=== PATIENT | male | born 1950 | race Caucasian/White ===

== ENCOUNTER 2017-06-24 19:02 | Emergency (ER) | payer MEDICARE, OTHER ==
[2017-06-24] MEDS ORDERED: Aspirin 81 MG Tab.Chew PO ONE (19:17)
[2017-06-24] MEDS ORDERED: Morphine 2 MG/ML Syringe IVPUSH PRN (19:17)
[2017-06-24] MEDS ORDERED: Sodium Chloride 0.9% 10 ML Syringe FLUSH PRN (19:17)
[2017-06-24] MEDS ORDERED: Nitroglycerin 0.4 MG Tab.SL ONE (19:19)
[2017-06-24] MEDS ORDERED: Aspirin 81 MG Tab.Chew ONE (19:19)
[2017-06-24] MEDS: Nitroglycerin 0.4 MG Tab.SL SL PRN ×2 (19:31→19:49)
--- NOTE | 2017-06-24 19:31 | EDM.PDOC ---
ED HPI GENERAL MEDICAL PROBLEM - General Chief Complaint: Chest Pain Stated Complaint: CHEST PAIN Time Seen by Provider: 06/24/17 19:11 Source of Information: Reports: Patient, Family, RN Notes Reviewed History Limitations: Reports: No Limitations - History of Present Illness INITIAL COMMENTS - FREE TEXT/NARRATIVE: 67-year-old gentleman presents emergency department day complaint of chest pressure, he states the pressure started about 3 hours prior denies any nausea vomiting shortness of breath or diaphoresis the pain goes to his back and up into the right side of his neck, he has no cardiac history he states he has stress test about 5 years ago which was negative does have a family history with one brother and his father known coronary artery disease chest pressure Pain Score (Numeric/FACES): 6 - Related Data Allergies Allergy/AdvReac Type Severity Reaction Status Date / Time No Known Allergies Allergy Verified 11/17/13 16:27 Home Meds: Home Meds Aspirin [Ecotrin] 81 mg PO BEDTIME 06/24/17 [History] Levothyroxine 150 mcg PO ACBREAKFAST 06/24/17 [History] Multivitamin [Multivitamins] 1 tab PO DAILY 06/24/17 [History] Past Medical History Genitourinary History: Reports: Prostate Disorder Oncologic (Cancer) History: Reports: Prostate, Thyroid - Past Surgical History Cardiovascular Surgical History: Reports: Other (See Below) Other Cardiovascular Surgeries/Procedures: stress test in 2011 GI Surgical History: Reports: Appendectomy Male Surgical History: Reports: Prostatectomy Social & Family History - Tobacco Use Smoking Status *Q: Never Smoker - Caffeine Use Caffeine Use: Reports: Coffee - Recreational Drug Use Recreational Drug Use: No ED ROS GENERAL - Review of Systems Review Of Systems: See Below Constitutional: Reports: No Symptoms HEENT: Reports: No Symptoms Respiratory: Reports: No Symptoms Cardiovascular: Reports: Chest Pain GI/Abdominal: Reports: No Symptoms : Reports: No Symptoms Musculoskeletal: Reports: No Symptoms Skin: Reports: No Symptoms Neurological: Reports: No Symptoms ED EXAM, GENERAL - Physical Exam Exam: See Below Free Text/Narrative:: General: Male, not in any distress, alert and oriented x3 HEENT: head is atraumatic normocephalic, eyes pupils equal round reactive to light, sclera clear no conjunctivitis appreciated. Ears tympanic membranes clear and bernal landmarks and light reflex are present bilaterally canals are clear. Nose no septal deviation, nares are clear, no blood present. Mouth mucosa is moist and pink no erythema or exudate noted in soft palate, tongue is midline uvula is midline, dentition is intact. Neck: Supple no thyromegaly no tracheal deviation. Nodes: Cervical nodes subclavicular nodes nontender no palpable lymphadenopathy noted. Lungs: clear to auscultation bilaterally with symmetrical respirations, no adventitious noise appreciated. CV: Regular rate and rhythm S1 and S2 appreciated no murmurs rubs or gallops noted. Abdomen: Soft, nontender, no palpable masses or organomegaly appreciated, no distention no guarding bowel sounds are present, . Neuro: Cranial nerves II through XII grossly intact Skin: Warm and dry, intact Extremities: No lower extremity edema appreciated, pedal pulse is +2. Course - Vital Signs Last Recorded V/S: Last Vital Signs Temp 99.4 F 06/24/17 20:47 Pulse 66 06/24/17 20:47 Resp 18 06/24/17 20:47 BP 113/60 06/24/17 20:47 Pulse Ox 93 L 06/24/17 20:47 - Orders/Labs/Meds Orders: Active Orders 24 hr Category Date Time Status Cardiac Monitoring [RC] .As Directed Care 06/24/17 19:17 Active EKG Documentation Completion [RC] ASDIRECTED Care 06/24/17 19:18 Active Peripheral IV Care [RC] . DIRECTED Care 06/24/17 19:18 Active Chest 1V Frontal [CR] Stat Exams 06/24/17 19:18 Taken Heparin Sodium/D5W [Heparin 25,000 Units in D5W 500 ML] Med 06/24/17 20:45 Ordered 25,000 units in 500 ml IV TITRATE Morphine Med 06/24/17 19:17 Active 2 mg IVPUSH Q10M PRN Nitroglycerin [Nitrostat] Med 06/24/17 19:17 Active 0.4 mg SL Q5M PRN Sodium Chloride 0.9% [Normal Saline] 1,000 ml Med 06/24/17 20:00 Active IV ASDIRECTED Sodium Chloride 0.9% [Saline Flush] Med 06/24/17 19:17 Active 10 ml FLUSH ASDIRECTED PRN Peripheral IV Insertion Adult [OM.PC] Stat Oth 06/24/17 19:17 Ordered Saline Lock Insert [OM.PC] Stat Oth 06/24/17 19:17 Ordered EKG 12 Lead [EK] Stat Ther 06/24/17 19:18 Ordered Medication Orders Sodium Chloride (Normal Saline) 1,000 mls @ 125 mls/hr IV ASDIRECTED AMAURY Last Infusion: 06/24/17 20:16 Dose: 125 mls/hr Admin: 06/24/17 19:58 Dose: 999 mls/hr Heparin Sodium/Dextrose (Heparin 25,000 Units In D5w 500 Ml) 25,000 units in 500 mls @ 23.232 mls/hr IV TITRATE AMAURY; 12 UNITS/KG/HR PRN Reason: Protocol Morphine Sulfate (Morphine) 2 mg IVPUSH Q10M PRN PRN Reason: Chest Pain Stop: 06/25/17 19:17 Nitroglycerin (Nitrostat) 0.4 mg SL Q5M PRN PRN Reason: Chest Pain Stop: 06/25/17 19:17 Last Admin: 06/24/17 19:49 Dose: 0.4 mg Admin: 06/24/17 19:31 Dose: 0.4 mg Sodium Chloride (Saline Flush) 10 ml FLUSH ASDIRECTED PRN PRN Reason: Keep Vein Open Last Admin: 06/24/17 19:32 Dose: 10 ml Labs: Laboratory Tests 06/24/17 06/24/17 06/24/17 Range/Units 19:25 19:25 19:25 WBC 12.6 H (4.5-11.0) K/uL RBC 4.86 (4.30-5.90) M/uL Hgb 14.3 (12.0-15.0) g/dL Hct 41.7 (40.0-54.0) % MCV 86 (80-98) fL MCH 29 (27-31) pg MCHC 34 (32-36) % Plt Count 318 (150-400) K/uL Neut % (Auto) 63 (36-66) % Lymph % (Auto) 25 (24-44) % [place] % (Auto) 9 H (2-6) % Eos % (Auto) 2 (2-4) % Baso % (Auto) 1 (0-1) % Sodium 140 (140-148) mmol/L Potassium 3.9 (3.6-5.2) mmol/L Chloride 105 (100-108) mmol/L Carbon Dioxide 27 (21-32) mmol/L Anion Gap 7.7 (5.0-14.0) mmol/L BUN 18 (7-18) mg/dL Creatinine 1.1 (0.8-1.3) mg/dL Est Cr Clr Drug Dosing 65.44 mL/min Estimated GFR (MDRD) > 60 (>60) Glucose 116 H (74-106) mg/dL Lactic Acid 1.5 (0.4-2.0) mmol/L Calcium 8.2 L (8.5-10.1) mg/dL Total Bilirubin 0.8 (0.2-1.0) mg/dL AST 16 (15-37) U/L ALT 16 (12-78) U/L Alkaline Phosphatase 60 (46-116) U/L CK-MB (CK-2) 1.2 (0-3.6) mg/mL Troponin I 0.114 H* (0.000-0.056) ng/mL Total Protein 6.9 (6.4-8.2) g/dL Albumin 3.4 (3.4-5.0) g/dL Globulin 3.5 (2.3-3.5) g/dL Albumin/Globulin Ratio 1.0 L (1.2-2.2) Lipase 147 (73-393) U/L Meds: Medications Generic Name Dose Route Start Last Admin Trade Name Freq PRN Reason Stop Dose Admin Sodium Chloride 1,000 mls @ 125 mls/hr 06/24/17 20:00 06/24/17 20:16 Normal Saline IV 125 mls/hr ASDIRECTED [facility] Infusion Heparin Sodium/Dextrose 25,000 units in 500 mls @ 23.232 mls/hr 06/24/17 20: 45 Heparin 25,000 Units In D5w 500 Ml IV TITRATE [facility] Protocol 12 UNITS/KG/HR Morphine Sulfate 2 mg 06/24/17 19:17 Morphine IVPUSH 06/25/17 19:17 Q10M PRN Chest Pain Nitroglycerin 0.4 mg 06/24/17 19:17 06/24/17 19:49 Nitrostat SL 06/25/17 19:17 0.4 mg Q5M PRN Administration Chest Pain Sodium Chloride 10 ml 06/24/17 19:17 06/24/17 19:32 Saline Flush FLUSH 10 ml ASDIRECTED PRN Administration Keep Vein Open Discontinued Medications Generic Name Dose Route Start Last Admin Trade Name Camilo PRN Reason Stop Dose Admin Aspirin 324 mg 06/24/17 19:17 06/24/17 19:24 Aspirin PO 06/24/17 19:18 324 mg ONETIME ONE Administration Aspirin Confirm 06/24/17 19:19 06/24/17 19:25 Aspirin Administered 06/24/17 19:20 Not Given Dose 324 mg .ROUTE .STK-MED ONE Clopidogrel Bisulfate 300 mg 06/24/17 20:37 06/24/17 20:45 Plavix PO 06/24/17 20:38 300 mg ONETIME ONE Administration Heparin Sodium (Porcine) 4,000 units 06/24/17 20:29 06/24/17 20:34 Heparin Sodium IVPUSH 06/24/17 20:30 4,000 units ONETIME ONE Administration Nitroglycerin Confirm 06/24/17 19:19 06/24/17 19:28 Nitrostat Administered 06/24/17 19:20 Not Given Dose 0.4 mg .ROUTE .STK-MED ONE Departure - Departure Time of Disposition: 20:50 Disposition: DC/Tfer to Acute Hospital 02 Reason for Transfer *Q: Primary PCI Indicated Condition: Fair Clinical Impression: Non-ST elevation [place] (NSTEMI) Forms: ED Department Discharge - My Orders Last 24 Hours: My Active Orders 06/24/17 19:17 Cardiac Monitoring [RC] .As Directed Morphine 2 mg IVPUSH Q10M PRN Nitroglycerin [Nitrostat] 0.4 mg SL Q5M PRN Sodium Chloride 0.9% [Saline Flush] 10 ml FLUSH ASDIRECTED PRN Peripheral IV Insertion Adult [OM.PC] Stat Saline Lock Insert [OM.PC] Stat 06/24/17 19:18 EKG Documentation Completion [RC] ASDIRECTED Peripheral IV Care [RC] . DIRECTED Chest 1V Frontal [CR] Stat EKG 12 Lead [EK] Stat 06/24/17 20:00 Sodium Chloride 0.9% [Normal Saline] 1,000 ml IV ASDIRECTED 06/24/17 20:45 Heparin Sodium/D5W [Heparin 25,000 Units in D5W 500 ML] 25,000 units in 500 ml IV TITRATE - Assessment/Plan Last 24 Hours: My Active Orders 06/24/17 19:17 Cardiac Monitoring [RC] .As Directed Morphine 2 mg IVPUSH Q10M PRN Nitroglycerin [Nitrostat] 0.4 mg SL Q5M PRN Sodium Chloride 0.9% [Saline Flush] 10 ml FLUSH ASDIRECTED PRN Peripheral IV Insertion Adult [OM.PC] Stat Saline Lock Insert [OM.PC] Stat 06/24/17 19:18 EKG Documentation Completion [RC] ASDIRECTED Peripheral IV Care [RC] . DIRECTED Chest 1V Frontal [CR] Stat EKG 12 Lead [EK] Stat 06/24/17 20:00 Sodium Chloride 0.9% [Normal Saline] 1,000 ml IV ASDIRECTED 06/24/17 20:45 Heparin Sodium/D5W [Heparin 25,000 Units in D5W 500 ML] 25,000 units in 500 ml IV TITRATE Plan: Assessment Acuity = acute Site and laterality = non-ST elevation myocardial infarction complicated patient with history of hypothyroidism Etiology = probable coronary artery disease Manifestations = angina Location of injury = Home Lab values = EKG shows nonspecific T wave inversions with poor R-wave progression no old EKGs available, WBC elevated at 12.6 consistent leukocytosis troponin is elevated 0.114 consistent with myocardial injury, chest x-ray shows no acute process I did review films myself I cannot appreciate any acute process , the official read from radiology is pending Plan Called and discussed case with Dr. Sullivan hospitalist rehabilitation coordinator [facility] kindly accepted the patient in transfer he will be transferred via EMS ground he has received 4000 heparin bolus and 300 mg of Plavix heparin drip will be initiated in route Patient was in agreement with the plan all questions were answered, This note was dictated using [employer] voice recognition software please call with any questions.
[2017-06-24] MEDS ORDERED: Sodium Chloride 0.9% 1,000 ML IV SCH (20:00)
[2017-06-24] MEDS ORDERED: Heparin Sodium 5,000 Units/ML Vial IVPUSH ONE (20:29)
[2017-06-24] MEDS ORDERED: Clopidogrel 75 MG Tab PO ONE (20:37)
[2017-06-24] MEDS ORDERED: Heparin Sodium/D5W 25,000 UNITS/500 ML BAG IV SCH (20:45)
[2017-06-24 21:18] VITALS: BP 112/69
--- NOTE | 2017-06-27 09:08 | CR ---
Chest 1V Frontal HISTORY: Chest Pain COMPARISON: Portable chest, 1953 hours FINDINGS: Lungs appear clear and normally aerated. Cardiomediastinal silhouette is within normal limits. Ather osclerotic calcification is noted in the aortic arch. No vascular redistribution or pleural fluid ca n be seen. Mild degenerative changes can be seen along the thoracic spine. IMPRESSION: No acute chest abnormality is identified.
== END 2017-06-24 21:31 ==
LOC: JP.ED 19:02
DX: I21.4 Non-ST elevation (NSTEMI) myocardial infarction (principal); Z79.82 Long term (current) use of aspirin; Z98.890 Other specified postprocedural states
CPT/HCPCS: 36415; 71010; 80053; 82553; 83605; 83690; 84484; 85025; 93005; 96374; 99285; A9270; J1644; J7040; J7050; 93010

== ENCOUNTER 2017-07-03 15:12 | Emergency (ER) | payer MEDICARE, OTHER ==
[2017-07-03] MEDS ORDERED: Nitroglycerin 0.4 MG Tab.SL SL PRN (15:23)
[2017-07-03] MEDS ORDERED: Morphine 2 MG/ML Syringe IVPUSH PRN (15:23)
--- NOTE | 2017-07-03 15:27 | EDM.PDOC ---
ED HPI GENERAL MEDICAL PROBLEM - General Chief Complaint: Chest Pain Stated Complaint: CHEST PAIN Time Seen by Provider: 07/03/17 15:25 Source of Information: Reports: Patient, Family, Old Records, RN Notes Reviewed History Limitations: Reports: No Limitations - History of Present Illness INITIAL COMMENTS - FREE TEXT/NARRATIVE: 67-year-old gentleman presents emergency department day complaint of chest pain and pressure he has a known history of diffuse coronary artery disease recently had a non-ST elevation myocardial infarction approximately 10 days ago was transferred to [facility] for further evaluation underwent cardiac catheterization which showed diffuse disease also discovered to have an aortic aneurysm records are pending. At this time he has no nausea vomiting no shortness of breath the pressure persists and does have radiation down into the left arm no diaphoresis Chest Pain Score (Numeric/FACES): 2 - Related Data Allergies Allergy/AdvReac Type Severity Reaction Status Date / Time No Known Allergies Allergy Verified 07/03/17 15:24 Home Meds: Home Meds Aspirin [Ecotrin] 81 mg PO BEDTIME 06/24/17 [History] Levothyroxine 150 mcg PO ACBREAKFAST 06/24/17 [History] Multivitamin [Multivitamins] 1 tab PO DAILY 06/24/17 [History] Carvedilol 1 tab PO BID 07/03/17 [History] Losartan [Cozaar] 12.5 mg PO DAILY 07/03/17 [History] atorvaSTATin Calcium [Atorvastatin Calcium] 1 tab PO BEDTIME 07/03/17 [History] Past Medical History Cardiovascular History: Reports: CAD, High Cholesterol, Hypertension, [place] Genitourinary History: Reports: Prostate Disorder Psychiatric History: Reports: None Oncologic (Cancer) History: Reports: Prostate, Thyroid - Past Surgical History Cardiovascular Surgical History: Reports: Other (See Below) Other Cardiovascular Surgeries/Procedures: stress test in 2011 GI Surgical History: Reports: Appendectomy Male Surgical History: Reports: Prostatectomy Social & Family History - Tobacco Use Smoking Status *Q: Never Smoker - Caffeine Use Caffeine Use: Reports: Coffee - Recreational Drug Use Recreational Drug Use: No ED ROS GENERAL - Review of Systems Review Of Systems: See Below Constitutional: Reports: No Symptoms HEENT: Reports: No Symptoms Respiratory: Reports: No Symptoms Cardiovascular: Reports: Chest Pain GI/Abdominal: Reports: No Symptoms : Reports: No Symptoms Musculoskeletal: Reports: Arm Pain ED EXAM, GENERAL - Physical Exam Exam: See Below Exam Limited By: No Limitations General Appearance: Alert, Mild Distress Head: Atraumatic, Normocephalic Neck: Normal Inspection, Supple, Non-Tender, Full Range of Motion Respiratory/Chest: No Respiratory Distress, Lungs Clear, Normal Breath Sounds, No Accessory Muscle Use, Chest Non-Tender Cardiovascular: Regular Rate, Rhythm, No Murmur GI/Abdominal: Soft, Non-Tender Course - Vital Signs Last Recorded V/S: Last Vital Signs Temp 98.4 F 07/03/17 15:21 Pulse 50 L 07/03/17 18:47 Resp 16 07/03/17 18:47 BP 141/90 H 07/03/17 18:47 Pulse Ox 98 07/03/17 18:47 - Orders/Labs/Meds Orders: Active Orders 24 hr Category Date Time Status Cardiac Monitoring [RC] .As Directed Care 07/03/17 15:24 Active EKG Documentation Completion [RC] ASDIRECTED Care 07/03/17 15:24 Active Peripheral IV Care [RC] . DIRECTED Care 07/03/17 15:24 Active Ang Abdomen Aorta w Bi Runoff [CT] Stat Exams 07/03/17 16:41 Taken Chest 1V Frontal [CR] Stat Exams 07/03/17 15:24 Taken Heparin Sodium/D5W [Heparin 25,000 Units in D5W 500 ML] Med 07/03/17 19:15 Ordered 25,000 units in 500 ml IV TITRATE Iopamidol [Isovue-370 (76%)] Med 07/03/17 17:15 Active 100 ml IV . DIRECTED Morphine Med 07/03/17 15:23 Active 2 mg IVPUSH Q10M PRN Nitroglycerin [Nitrostat] Med 07/03/17 15:23 Active 0.4 mg SL Q5M PRN Sodium Chloride 0.9% [Saline Flush] Med 07/03/17 15:23 Active 10 ml FLUSH ASDIRECTED PRN Sodium Chloride 0.9% [Saline Flush] Med 07/03/17 17:05 Active 10 ml FLUSH ONETIME PRN Peripheral IV Insertion Adult [OM.PC] Stat Oth 07/03/17 15:23 Ordered Saline Lock Insert [OM.PC] Stat Oth 07/03/17 15:23 Ordered EKG 12 Lead [EK] Stat Ther 07/03/17 15:24 Ordered Medication Orders Heparin Sodium/Dextrose (Heparin 25,000 Units In D5w 500 Ml) 25,000 units in 500 mls @ 22.861 mls/hr IV TITRATE AMAURY; 12 UNITS/KG/HR PRN Reason: Protocol Iopamidol (Isovue-370 (76%)) 100 ml IV . DIRECTED AMAURY Morphine Sulfate (Morphine) 2 mg IVPUSH Q10M PRN PRN Reason: Chest Pain Stop: 07/04/17 15:24 Nitroglycerin (Nitrostat) 0.4 mg SL Q5M PRN PRN Reason: Chest Pain Stop: 07/04/17 15:24 Last Admin: 07/03/17 15:38 Dose: 0.4 mg Sodium Chloride (Saline Flush) 10 ml FLUSH ASDIRECTED PRN PRN Reason: Keep Vein Open Last Admin: 07/03/17 15:29 Dose: 10 ml Sodium Chloride (Saline Flush) 10 ml FLUSH ONETIME PRN PRN Reason: PER RADIOLOGY PROTOCOL Last Admin: 07/03/17 17:20 Dose: 10 ml Labs: Laboratory Tests 07/03/17 07/03/17 07/03/17 Range/Units 15:35 15:35 15:35 WBC 6.9 (4.5-11.0) K/uL RBC 4.54 (4.30-5.90) M/uL Hgb 13.1 (12.0-15.0) g/dL Hct 39.5 L (40.0-54.0) % MCV 87 (80-98) fL MCH 29 (27-31) pg MCHC 33 (32-36) % Plt Count 328 (150-400) K/uL Neut % (Auto) 43 (36-66) % Lymph % (Auto) 42 (24-44) % [place] % (Auto) 11 H (2-6) % Eos % (Auto) 3 (2-4) % Baso % (Auto) 0 (0-1) % PT 10.3 (9.5-12.0) sec INR 0.96 (0.80-1.20) APTT 29.4 (27.0-36.0) sec Sodium 143 (140-148) mmol/L Potassium 4.0 (3.6-5.2) mmol/L Chloride 107 (100-108) mmol/L Carbon Dioxide 31 (21-32) mmol/L Anion Gap 5.4 (5.0-14.0) mmol/L BUN 16 (7-18) mg/dL Creatinine 1.0 (0.8-1.3) mg/dL Est Cr Clr Drug Dosing 71.99 mL/min Estimated GFR (MDRD) > 60 (>60) Glucose 121 H (74-106) mg/dL Calcium 8.3 L (8.5-10.1) mg/dL Total Bilirubin 0.5 (0.2-1.0) mg/dL AST 11 L (15-37) U/L ALT 19 (12-78) U/L Alkaline Phosphatase 68 (46-116) U/L CK-MB (CK-2) 0.8 (0-3.6) mg/mL Troponin I 0.074 H* (0.000-0.056) ng/mL Total Protein 7.0 (6.4-8.2) g/dL Albumin 3.4 (3.4-5.0) g/dL Globulin 3.6 H (2.3-3.5) g/dL Albumin/Globulin Ratio 0.9 L (1.2-2.2) 07/03/17 Range/Units 18:33 WBC (4.5-11.0) K/uL RBC (4.30-5.90) M/uL Hgb (12.0-15.0) g/dL Hct (40.0-54.0) % MCV (80-98) fL MCH (27-31) pg MCHC (32-36) % Plt Count (150-400) K/uL Neut % (Auto) (36-66) % Lymph % (Auto) (24-44) % [place] % (Auto) (2-6) % Eos % (Auto) (2-4) % Baso % (Auto) (0-1) % PT (9.5-12.0) sec INR (0.80-1.20) APTT (27.0-36.0) sec Sodium (140-148) mmol/L Potassium (3.6-5.2) mmol/L Chloride (100-108) mmol/L Carbon Dioxide (21-32) mmol/L Anion Gap (5.0-14.0) mmol/L BUN (7-18) mg/dL Creatinine (0.8-1.3) mg/dL Est Cr Clr Drug Dosing mL/min Estimated GFR (MDRD) (>60) Glucose (74-106) mg/dL Calcium (8.5-10.1) mg/dL Total Bilirubin (0.2-1.0) mg/dL AST (15-37) U/L ALT (12-78) U/L Alkaline Phosphatase (46-116) U/L CK-MB (CK-2) (0-3.6) mg/mL Troponin I 0.083 H* (0.000-0.056) ng/mL Total Protein (6.4-8.2) g/dL Albumin (3.4-5.0) g/dL Globulin (2.3-3.5) g/dL Albumin/Globulin Ratio (1.2-2.2) Meds: Medications Generic Name Dose Route Start Last Admin Trade Name Freq PRN Reason Stop Dose Admin Heparin Sodium/Dextrose 25,000 units in 500 mls @ 22.861 mls/hr 07/03/17 19: 15 Heparin 25,000 Units In D5w 500 Ml IV TITRATE COUNTS INCLUDE 234 BEDS AT THE [facility] Protocol 12 UNITS/KG/HR Iopamidol 100 ml 07/03/17 17:15 Isovue-370 (76%) IV . DIRECTED COUNTS INCLUDE 234 BEDS AT THE [facility] Morphine Sulfate 2 mg 07/03/17 15:23 Morphine IVPUSH 07/04/17 15:24 Q10M PRN Chest Pain Nitroglycerin 0.4 mg 07/03/17 15:23 07/03/17 15:38 Nitrostat SL 07/04/17 15:24 0.4 mg Q5M PRN Administration Chest Pain Sodium Chloride 10 ml 07/03/17 15:23 07/03/17 15:29 Saline Flush FLUSH 10 ml ASDIRECTED PRN Administration Keep Vein Open Sodium Chloride 10 ml 07/03/17 17:05 07/03/17 17:20 Saline Flush FLUSH 10 ml ONETIME PRN Administration PER RADIOLOGY PROTOCOL Discontinued Medications Generic Name Dose Route Start Last Admin Trade Name Freq PRN Reason Stop Dose Admin Heparin Sodium (Porcine) 4,000 units 07/03/17 19:05 Heparin Sodium IVPUSH 07/03/17 19:06 ONETIME ONE Sodium Chloride 100 mls @ 3 mls/sec 07/03/17 17:05 Normal Saline IV 07/03/17 17:06 ONETIME ONE - Re-Assessments/Exams Free Text/Narrative Re-Assessment/Exam: 07/03/17 16:42 Called and discussed case with Dr. Spencer cobol engineer on-call [facility] because he had recent cardiac catheterization 4 days ago he has a known aortic aneurysm recommendation to proceed with CTA of the aorta chest and abdomen looking for subtle dissection, patient was in agreement with the plan CT is ordered Departure - Departure Time of Disposition: 19:13 Disposition: DC/Tfer to Acute Hospital 02 Reason for Transfer *Q: Other Condition: Fair Clinical Impression: Non-ST elevation [place] (NSTEMI), Ascending aortic aneurysm Forms: ED Department Discharge - My Orders Last 24 Hours: My Active Orders 07/03/17 15:23 Morphine 2 mg IVPUSH Q10M PRN Nitroglycerin [Nitrostat] 0.4 mg SL Q5M PRN Sodium Chloride 0.9% [Saline Flush] 10 ml FLUSH ASDIRECTED PRN Peripheral IV Insertion Adult [OM.PC] Stat Saline Lock Insert [OM.PC] Stat 07/03/17 15:24 Cardiac Monitoring [RC] .As Directed EKG Documentation Completion [RC] ASDIRECTED Peripheral IV Care [RC] . DIRECTED Chest 1V Frontal [CR] Stat EKG 12 Lead [EK] Stat 07/03/17 16:41 Ang Abdomen Aorta w Bi Runoff [CT] Stat 07/03/17 17:05 Sodium Chloride 0.9% [Saline Flush] 10 ml FLUSH ONETIME PRN 07/03/17 17:15 Iopamidol [Isovue-370 (76%)] 100 ml IV . DIRECTED 07/03/17 19:15 Heparin Sodium/D5W [Heparin 25,000 Units in D5W 500 ML] 25,000 units in 500 ml IV TITRATE - Assessment/Plan Last 24 Hours: My Active Orders 07/03/17 15:23 Morphine 2 mg IVPUSH Q10M PRN Nitroglycerin [Nitrostat] 0.4 mg SL Q5M PRN Sodium Chloride 0.9% [Saline Flush] 10 ml FLUSH ASDIRECTED PRN Peripheral IV Insertion Adult [OM.PC] Stat Saline Lock Insert [OM.PC] Stat 07/03/17 15:24 Cardiac Monitoring [RC] .As Directed EKG Documentation Completion [RC] ASDIRECTED Peripheral IV Care [RC] . DIRECTED Chest 1V Frontal [CR] Stat EKG 12 Lead [EK] Stat 07/03/17 16:41 Ang Abdomen Aorta w Bi Runoff [CT] Stat 07/03/17 17:05 Sodium Chloride 0.9% [Saline Flush] 10 ml FLUSH ONETIME PRN 07/03/17 17:15 Iopamidol [Isovue-370 (76%)] 100 ml IV . DIRECTED 07/03/17 19:15 Heparin Sodium/D5W [Heparin 25,000 Units in D5W 500 ML] 25,000 units in 500 ml IV TITRATE Plan: Assessment Acuity = acute Site and laterality = non-ST elevation myocardial infarction complicated in a patient with known history of diffuse coronary artery disease and an ascending aortic aneurysm at 5.6 cm Etiology = unclear etiology Manifestations = chest pain Location of injury = Home Lab values = CBC CMP unremarkable troponin initially elevated 0.074 normal is 0.05 6 repeat troponin 3 hours later is 0.083, CT a of the aneurysm reveals a 5.6 dilated ascending aortic aneurysm with no evidence of dissection or rupture small amount of pericardial fluid Plan Called and discussed case with Dr. Dorantes cardiology [facility] recommended consultation with [facility] cardiothoracic surgery I spoke with Dr. Rodriguez who kindly accepted the patient in transport because of the continued elevation of the troponin this is treated as a non-STEMI heparin bolus was provided 4000 units heparin drip was initiated in route no Plavix was started for the potential of surgery to repair the aneurysm. He did receive aspirin prior to arrival at home he was given 1 nitroglycerin which resulted in pain-free he has been pain free during his whole duration at the ED 5 signs have been stable elected to transport via EMS ground. Patient was in agreement with the plan all questions were answered, This note was dictated using [employer] voice recognition software please call with any questions.
[2017-07-03] MEDS: Sodium Chloride 0.9% 10 ML Syringe FLUSH PRN ×2 (15:29→19:15)
[2017-07-03] MEDS ORDERED: Sodium Chloride 0.9% 10 ML Syringe FLUSH PRN (17:05)
[2017-07-03] MEDS ORDERED: Sodium Chloride 0.9% 100 ML IV ONE (17:05)
[2017-07-03] MEDS ORDERED: Iopamidol 755 Mg/ML 100 ML Bottle IV SCH (17:15)
[2017-07-03] MEDS ORDERED: Heparin Sodium 5,000 Units/ML Vial IVPUSH ONE (19:05)
[2017-07-03] MEDS ORDERED: Heparin Sodium/D5W 25,000 UNITS/500 ML BAG IV SCH (19:15)
[2017-07-03 19:25] VITALS: BP 146/88
--- NOTE | 2017-07-04 08:44 | CR ---
Chest 1V Frontal INDICATION: Chest Pain COMPARISON: 06/24/2017 FINDINGS: Single AP portable chest. Heart size remains normal. No acute infiltrates. Surgical clip s at the base of the neck. IMPRESSION: Nothing acute. No significant change since 06/24/2017.
== END 2017-07-03 19:48 ==
LOC: JP.ED 15:12
DX: I21.4 Non-ST elevation (NSTEMI) myocardial infarction (principal); I71.2 Thoracic aortic aneurysm, without rupture; I25.10 Atherosclerotic heart disease of native coronary artery without angina pectoris; E78.00 Pure hypercholesterolemia, unspecified; I10 Essential (primary) hypertension; Z85.46 Personal history of malignant neoplasm of prostate; Z85.850 Personal history of malignant neoplasm of thyroid; Z90.49 Acquired absence of other specified parts of digestive tract; Z90.89 Acquired absence of other organs; Z79.899 Other long term (current) drug therapy; Z79.82 Long term (current) use of aspirin
CPT/HCPCS: 36415; 71010; 75635; 80053; 82553; 84484; 85025; 85610; 85730; 93005; 96374; 96375; 99285; A9270; J1644; J7050; 93010

== ENCOUNTER 2018-01-06 12:07 | Emergency (ER) | payer MEDICARE, OTHER ==
[2018-01-06 12:28] VITALS: BP 117/63
--- NOTE | 2018-01-06 12:56 | EDM.PDOC ---
ED HPI GENERAL MEDICAL PROBLEM - General Chief Complaint: Chest Pain Stated Complaint: CHEST PAIN Time Seen by Provider: 01/06/18 12:51 Source of Information: Reports: Patient History Limitations: Reports: No Limitations - History of Present Illness INITIAL COMMENTS - FREE TEXT/NARRATIVE: PT ARRIVED WITH LEFT SIDED CHEST PAIN WHICH HAS BEEN GOING ON FOR THE PAST SEVERAL DAYS. iT HURTS THE MOST WHEN HE DEP BREATHES, COUGHES OR MOVES A CERTAIN WAY. Onset: Other (sTARTED ON THUR. iT ORINGINALLY STARTED IN HIS BACK AND THEN IN A FEW HOURS WAS IN HIS LOWER LEFT CHEST AND HAS REMAINED THERE. 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 G) Duration: Hour(s): Location: Reports: Chest Quality: Reports: Sharp, Stabbing, Other ( ALMOST FEELS LIKE NERVE PAIN) - Related Data Allergies Allergy/AdvReac Type Severity Reaction Status Date / Time No Known Allergies Allergy Verified 07/03/17 15:24 Home Meds: Home Meds Levothyroxine 150 mcg PO ACBREAKFAST 06/24/17 [History] Multivitamin [Multivitamins] 1 tab PO DAILY 06/24/17 [History] Carvedilol 1 tab PO BID 07/03/17 [History] Losartan [Cozaar] 12.5 mg PO DAILY 07/03/17 [History] atorvaSTATin Calcium [Atorvastatin Calcium] 1 tab PO BEDTIME 07/03/17 [History] Aspirin/Calcium Carbonate/Mag [Aspirin Buffered] 1 tab PO DAILY 01/06/18 [ History] Past Medical History Cardiovascular History: Reports: Aneurysm, CAD, High Cholesterol, Hypertension, [place] Genitourinary History: Reports: Prostate Disorder Psychiatric History: Reports: None Oncologic (Cancer) History: Reports: Prostate, Thyroid - Past Surgical History Cardiovascular Surgical History: Reports: AAA Repair, Other (See Below) Other Cardiovascular Surgeries/Procedures: stress test in 2011 GI Surgical History: Reports: Appendectomy Male Surgical History: Reports: Prostatectomy Social & Family History - Tobacco Use Smoking Status *Q: Never Smoker - Caffeine Use Caffeine Use: Reports: Coffee - Recreational Drug Use Recreational Drug Use: No ED ROS GENERAL - Review of Systems Review Of Systems: See Below Constitutional: Reports: No Symptoms HEENT: Reports: No Symptoms Respiratory: Reports: Other ( lEFT SIDED CHEST PAIN HURTS MORE WHEN HE TAKES A DEEP BREATH. ) Cardiovascular: Reports: No Symptoms Endocrine: Reports: No Symptoms GI/Abdominal: Reports: No Symptoms : Reports: No Symptoms Musculoskeletal: Reports: Other (PAIN IN THE LEFT CHEST. ) ED EXAM, GENERAL - Physical Exam Exam: See Below Free Text/Narrative:: pT ARRIVED WITH PAIN IN HIS LEFT CHEST WHOICH HURTS ALOT MORE WITH DEEP BREATHING OR COUGHING. Exam Limited By: No Limitations General Appearance: Alert, Moderate Distress Ears: Normal TMs Throat/Mouth: Normal Inspection Head: Atraumatic Neck: Normal Inspection Respiratory/Chest: Other (tHE PAIN IS INCREASED WITH DEEP BREATHING. ) Cardiovascular: Regular Rate, Rhythm GI/Abdominal: Soft, Non-Tender (Male) Exam: Deferred Rectal (Males) Exam: Deferred Back Exam: Normal Inspection Extremities: Normal Inspection Neurological: Alert, Oriented, Normal Cognition Psychiatric: Normal Affect Course - Vital Signs Last Recorded V/S: Last Vital Signs Temp 36.3 C 01/06/18 12:25 Pulse 66 01/06/18 12:25 Resp 14 01/06/18 12:25 BP 117/63 01/06/18 12:25 Pulse Ox 98 01/06/18 12:25 - Orders/Labs/Meds Orders: Active Orders 24 hr Category Date Time Status Sodium Chloride 0.9% [Normal Saline] 90 ml Med 01/06/18 13:45 Active IV ASDIRECTED Medication Orders Sodium Chloride (Normal Saline) 90 mls @ 4 mls/sec IV ASDIRECTED AMAURY Stop: 01/07/18 13:46 Last Admin: 01/06/18 14:01 Dose: 4 mls/sec Labs: Laboratory Tests 01/06/18 01/06/18 01/06/18 Range/Units 12:43 12:43 12:43 WBC 9.4 (4.5-11.0) K/uL RBC 4.51 (4.30-5.90) M/uL Hgb 12.8 (12.0-15.0) g/dL Hct 38.5 L (40.0-54.0) % MCV 85 (80-98) fL MCH 28 (27-31) pg MCHC 33 (32-36) % Plt Count 300 (150-400) K/uL Neut % (Auto) 60 (36-66) % Lymph % (Auto) 26 (24-44) % [place] % (Auto) 12 H (2-6) % Eos % (Auto) 2 (2-4) % Baso % (Auto) 0 (0-1) % Sodium 140 (140-148) mmol/L Potassium 4.1 (3.6-5.2) mmol/L Chloride 105 (100-108) mmol/L Carbon Dioxide 27 (21-32) mmol/L Anion Gap 8.4 (5.0-14.0) mmol/L BUN 20 H (7-18) mg/dL Creatinine 1.0 (0.8-1.3) mg/dL Est Cr Clr Drug Dosing 71.99 mL/min Estimated GFR (MDRD) > 60 (>60) Glucose 109 H (74-106) mg/dL Calcium 8.3 L (8.5-10.1) mg/dL Total Bilirubin 0.7 (0.2-1.0) mg/dL AST 17 (15-37) U/L ALT 25 (12-78) U/L Alkaline Phosphatase 75 (46-116) U/L Creatine Kinase 60 (39-308) U/L Troponin I 0.031 (0.000-0.056) ng/mL C-Reactive Protein (0.0-0.3) mg/dL Total Protein 6.1 L (6.4-8.2) g/dL Albumin 3.2 L (3.4-5.0) g/dL Globulin 2.9 (2.3-3.5) g/dL Albumin/Globulin Ratio 1.1 L (1.2-2.2) 01/06/18 Range/Units 12:58 WBC (4.5-11.0) K/uL RBC (4.30-5.90) M/uL Hgb (12.0-15.0) g/dL Hct (40.0-54.0) % MCV (80-98) fL MCH (27-31) pg MCHC (32-36) % Plt Count (150-400) K/uL Neut % (Auto) (36-66) % Lymph % (Auto) (24-44) % [place] % (Auto) (2-6) % Eos % (Auto) (2-4) % Baso % (Auto) (0-1) % Sodium (140-148) mmol/L Potassium (3.6-5.2) mmol/L Chloride (100-108) mmol/L Carbon Dioxide (21-32) mmol/L Anion Gap (5.0-14.0) mmol/L BUN (7-18) mg/dL Creatinine (0.8-1.3) mg/dL Est Cr Clr Drug Dosing mL/min Estimated GFR (MDRD) (>60) Glucose (74-106) mg/dL Calcium (8.5-10.1) mg/dL Total Bilirubin (0.2-1.0) mg/dL AST (15-37) U/L ALT (12-78) U/L Alkaline Phosphatase (46-116) U/L Creatine Kinase (39-308) U/L Troponin I (0.000-0.056) ng/mL C-Reactive Protein 4.30 H (0.0-0.3) mg/dL Total Protein (6.4-8.2) g/dL Albumin (3.4-5.0) g/dL Globulin (2.3-3.5) g/dL Albumin/Globulin Ratio (1.2-2.2) Meds: Medications Generic Name Dose Route Start Last Admin Trade Name Freq PRN Reason Stop Dose Admin Sodium Chloride 90 mls @ 4 mls/sec 01/06/18 13:45 01/06/18 14:01 Normal Saline IV 01/07/18 13:46 4 mls/sec ASDIRECTED AMAURY Administration Discontinued Medications Generic Name Dose Route Start Last Admin Trade Name Freq PRN Reason Stop Dose Admin Iopamidol 100 ml 01/06/18 13:45 01/06/18 14:01 Isovue-370 (76%) IV 01/07/18 13:46 100 ml . DIRECTED AMAURY Administration Ketorolac Tromethamine 60 mg 01/06/18 14:41 Toradol IM 01/06/18 14:42 ONETIME ONE - Re-Assessments/Exams Free Text/Narrative Re-Assessment/Exam: 01/06/18 14:42 pt had a normal chest xray but he had an elevated crp. He had a cat scan of the chest which looked good. Departure - Departure Time of Disposition: 14:43 Disposition: Home, Self-Care 01 Condition: Fair Clinical Impression: Chest wall pain Referrals: Vaishali Lebron MD [Primary Care Provider] - Forms: ED Department Discharge Care Plan Goals: moist heat to the chest, motrin 600mg tid for the next 4-5 days. rtc if pain is worse. - My Orders Last 24 Hours: My Active Orders 01/06/18 13:45 Sodium Chloride 0.9% [Normal Saline] 90 ml IV ASDIRECTED - Assessment/Plan Last 24 Hours: My Active Orders 01/06/18 13:45 Sodium Chloride 0.9% [Normal Saline] 90 ml IV ASDIRECTED
--- NOTE | 2018-01-06 13:23 | CR ---
Chest 2V HISTORY: left sided chest paIN COMPARISON: 07/03/2017 FINDINGS: Lungs appear clear and normally aerated. There has been interval median sternotomy. Heart size is wit hin normal limits and stable. There is mild atherosclerotic calcification in the aortic arch. No vasc ular redistribution or pleural fluid can be seen. Bony structures are stable. Multiple surgical clips are again noted base of the neck the region of the thyroid gland. IMPRESSION: No acute chest abnormality identified. Interval median sternotomy changes are noted. Postoperative ch anges in the region of the thyroid gland appear redemonstrated.
[2018-01-06] MEDS ORDERED: Iopamidol 755 Mg/ML 100 ML Bottle IV SCH (13:45)
[2018-01-06] MEDS ORDERED: Sodium Chloride 0.9% 90 ML IV SCH (13:45)
--- NOTE | 2018-01-06 14:34 | CT ---
Ang Chest HISTORY: ASCENDING ANEURISM REPAIR OF THE AORTA IN SEPT, TECHNIQUE: Spiral enhanced pulmonary CT angiography of the chest was obtained along with coronal and MIP coronal and sagittal reconstructions. FINDINGS: There is good enhancement of the pulmonary arteries bilaterally. I see no abnormal intraluminal filli ng defect, vascular cutoff, or nonenhancement. No pulmonary embolism is identified. There is limited opacification of the thoracic aorta. Thoracic aorta is normal in caliber. No thoracic aortic aneurysm or obvious dissection can be seen. There is mild atherosclerotic calcification in the aortic arch. I see no significant mural thrombus. Median sternotomy changes and mediastinal surgical clips are note d. There are old external pacer wires. No mass or abnormal fluid collection can be seen in the medias tinum. There is no significant pericardial fluid. Heart size is within normal limits. Small hilar and mediastinal lymph nodes visualized are not enlarged by size criteria. No acute infiltrate is identified. There is mild dependent atelectasis or edema posteriorly in both l ower lobes. There is no pleural fluid or chest wall abnormality. Visualized upper abdominal structure s are unremarkable. No lytic or blastic bony lesion can be seen. IMPRESSION: 1. Negative for pulmonary embolism. No evidence for aortic aneurysm or obvious aortic dissection. 2. Old median sternotomy changes. 3. Mild dependent atelectasis or edema is noted posteriorly in both lower lobes. 4. No other acute chest abnormality is identified. Findings were discussed with Dr. Rodriguez in the Emergency Department at 1415 hours. Total DLP 392 mGycm
[2018-01-06] MEDS ORDERED: Ketorolac 60 MG/2 ML SDV IM ONE (14:41)
== END 2018-01-06 15:08 | disposition home or self-care (01) ==
LOC: JP.ED 12:07
DX: R07.89 Other chest pain (principal); I10 Essential (primary) hypertension; E78.00 Pure hypercholesterolemia, unspecified; I25.10 Atherosclerotic heart disease of native coronary artery without angina pectoris; Z79.899 Other long term (current) drug therapy; Z79.82 Long term (current) use of aspirin
CPT/HCPCS: 36415; 71046; 71275; 80053; 82550; 84484; 85025; 86140; 96372; 99285; J1885; J7030; Q9967

== ENCOUNTER → 2018-02-14 | Day surgery (SDC) | payer MEDICARE, OTHER ==
[~2018-02-14] MED LIST: Dextrose 5%-Lactated Ringers 1,000 ML IV SCH; Glycopyrrolate 0.2 MG/ML 2 ML SDV IVPUSH ONE; Midazolam 1 MG/ML 2 ML SDV ONE; Pantoprazole 40 MG Vial IV ONE; Pantoprazole 40 MG Vial ONE; Propofol 200 MG/20 ML SDV ONE; fentaNYL 100 MCG/2 ML SDV ONE
--- NOTE | 2018-02-16 08:26 | OR ---
DATE OF PROCEDURE: 02/14/2018 PREOPERATIVE DIAGNOSIS: Anemia. POSTOPERATIVE DIAGNOSES: 1. Anemia associated with: a. Upper endoscopy showing erosive antral gastritis (possible site of intermittent low-grade bleeding). 2. Possible focal mild colitis of descending and sigmoid colons. 3. Minimal uncomplicated left-sided colonic diverticulosis. OPERATIVE PROCEDURES: 1. Esophagogastroduodenoscopy with biopsies of antrum for CLOtest. 2. Flexible colonoscopy with: a. Biopsies of descending and sigmoid colons for histologic evaluation. b. Collection of stool for C. difficile enterotoxin. ANESTHESIA: IV sedation. INDICATION FOR PROCEDURE: The patient is referred from the [facility] for upper and lower endoscopies for evaluation of anemia. The plan is to proceed with upper and lower endoscopies with biopsies and/or polypectomy as indicated. Potential risks including bleeding and perforation were discussed, and the patient wishes to proceed. DETAILS OF PROCEDURE: The patient was taken to the operating room and placed in a left lateral decubitus position. IV sedation was administered, after which the upper GI endoscope was passed orally through the length of the esophagus and into the stomach with retroflexion view of the fundus, and thereafter through the pyloric channel and into the proximal duodenum. Findings included a normal hypopharynx, larynx, upper esophageal sphincter, and esophageal body. At the EG junction, there was no significant inflammation or upward extension of the gastroesophageal junction line and no significant hiatal hernia was present. Within the stomach, the proximal stomach was unremarkable. The patient did have a fairly significant erosive gastritis present in the antrum. These presently were covered with fibrinous exudate, but certainly could account for some intermittent low-grade bleeding consistent with the patient's history. The pyloric channel and duodenum to the junction of the third and fourth portions were unremarkable. At this point, biopsies were taken from the antrum and sent for CLOtest to assess the H. pylori status. Minimal bleeding from the biopsy sites was seen, and the upper endoscopy completed. Attention was then taken to the colonoscopy. Initial digital rectal exam was performed and was unremarkable. Colonoscope was then passed into the rectum with retroflexion revealing uncomplicated hemorrhoidal columns. The scope was then passed to the level of the cecum. The prep was quite good. There were very few uncomplicated diverticula located in the left colon and some possible very mild colitis in the descending and sigmoid colons. With this area having the appearance of some slight edema. Apart from that, no additional abnormalities were noted, and certainly nothing in the colon would account for significant bleeding. Biopsies were obtained from the descending and sigmoid colons, and minimal bleeding from those biopsy sites was seen. The stool was also collected for C. difficile enterotoxin for the purpose of screening, as the patient states that some of his GI symptoms seem to have started after his open heart surgery, at which time, he would have had some antibiotics. Otherwise, there are no polyps or signs of neoplasia. Colonoscope was withdrawn, as the findings were reconfirmed. The patient will be given Protonix 40 mg IV in the recovery room and then started on Protonix 40 mg daily. He will be set up to see Dr. 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 Alvin Mohan MD /[id number]
== END ==
LOC: JP.SDS 05:54
PROVIDERS: ATTEND Surgery
DX: K52.9 Noninfective gastroenteritis and colitis, unspecified (principal); K57.30 Diverticulosis of large intestine without perforation or abscess without bleeding; K29.00 Acute gastritis without bleeding; K21.9 Gastro-esophageal reflux disease without esophagitis
CPT/HCPCS: 43239; 45380; 87081; 87493; C9113; J2250; J2704; J3010; J7042; 88305; J3490

== ENCOUNTER 2018-12-13 13:37 | Emergency (ER) | payer MEDICARE, OTHER ==
[2018-12-13 13:56] VITALS: BP 159/78
[2018-12-13] MEDS ORDERED: Diphtheria,Pertussis(Acell),Tetanus Vaccine 0.5 ML SDV IM ONE (14:08)
--- NOTE | 2018-12-13 14:30 | EDM.PDOC ---
ED HPI GENERAL MEDICAL PROBLEM - General Chief Complaint: Laceration Stated Complaint: SPLIT LIP Time Seen by Provider: 12/13/18 13:55 Source of Information: Reports: Patient, Family History Limitations: Reports: No Limitations - History of Present Illness INITIAL COMMENTS - FREE TEXT/NARRATIVE: 68-year-old male got hit with a 2 x 4 on the upper lip sustaining a laceration. No dental injury. No loss of consciousness. He is due for a TDap booster. Onset: Today Duration: Hour(s): (Within the last 2 hours) Location: Reports: Face - Related Data Allergies Allergy/AdvReac Type Severity Reaction Status Date / Time No Known Allergies Allergy Verified 12/13/18 13:56 Home Meds: Home Meds Levothyroxine 125 mcg PO ACBREAKFAST 06/24/17 [History] Multivitamin [Multivitamins] 1 tab PO DAILY 06/24/17 [History] Carvedilol 3.125 mg PO BID 07/03/17 [History] Losartan [Cozaar] 12.5 mg PO DAILY 07/03/17 [History] atorvaSTATin Calcium [Atorvastatin Calcium] 80 mg PO BEDTIME 07/03/17 [History] Aspirin/Calcium Carbonate/Mag [Aspirin Buffered] 325 mg PO DAILY 01/06/18 [ History] Pantoprazole [ProTONIX] 40 mg PO DAILY 12/13/18 [History] Past Medical History HEENT History: Reports: Impaired Vision Cardiovascular History: Reports: Aneurysm, CAD, High Cholesterol, Hypertension, [place] Genitourinary History: Reports: Prostate Disorder Psychiatric History: Reports: None Oncologic (Cancer) History: Reports: Prostate, Thyroid - Past Surgical History HEENT Surgical History: Reports: Tonsillectomy Cardiovascular Surgical History: Reports: AAA Repair, Other (See Below) Other Cardiovascular Surgeries/Procedures: stress test in 2011 GI Surgical History: Reports: Appendectomy Male Surgical History: Reports: Prostatectomy Endocrine Surgical History: Reports: Thyroidectomy Social & Family History - Tobacco Use Smoking Status *Q: Never Smoker - Caffeine Use Caffeine Use: Reports: Coffee - Recreational Drug Use Recreational Drug Use: No ED ROS GENERAL - Review of Systems Review Of Systems: ROS reveals no pertinent complaints other than HPI. ED EXAM, SKIN/RASH Exam: See Below Exam Limited By: No Limitations General Appearance: Alert, No Apparent Distress Eye Exam: Bilateral Eye: PERRL Throat/Mouth: Other (Patient has a 2 cm laceration on the upper left lip that crosses the vermilion border extending into the subcutaneous tissue) Neck: Supple Respiratory/Chest: No Respiratory Distress Course - Vital Signs Last Recorded V/S: Last Vital Signs Temp 98 F 12/13/18 13:55 Pulse 62 12/13/18 13:55 Resp 14 12/13/18 13:55 BP 159/78 H 12/13/18 13:55 Pulse Ox 98 12/13/18 13:55 - Orders/Labs/Meds Orders: Active Orders 24 hr Category Date Time Status Vaccines to be Administered [RC] PER UNIT ROUTINE Care 12/13/18 14:08 Active Meds: Medications Discontinued Medications Generic Name Dose Route Start Last Admin Trade Name Freq PRN Reason Stop Dose Admin Diphtheria/Tetanus/Acell Pertussis 0.5 ml 12/13/18 14:08 12/13/18 14:14 Adacel IM 12/13/18 14:09 0.5 ml .ONCE ONE Administration Lidocaine HCl 5 ml 12/13/18 14:08 12/13/18 14:14 Xylocaine-Mpf 1% INJECT 12/13/18 14:09 5 ml ONETIME ONE Administration - Re-Assessments/Exams Free Text/Narrative Re-Assessment/Exam: 12/13/18 14:29 The lip was anesthetized with 1% lidocaine, and 2 6-0 Ethilon sutures were used to close the laceration. He was also given a TDap booster. Sutures can be removed in 5 days, next Tuesday. Departure - Departure Time of Disposition: 14:44 Disposition: Home, Self-Care 01 Condition: Good Clinical Impression: Lip laceration Qualifiers: Encounter type: initial encounter Qualified Code(s): S01.511A - Laceration without foreign body of lip, initial encounter - Discharge Information Instructions: Laceration Care, Adult Referrals: Vaishali Lebron MD [Primary Care Provider] - Forms: ED Department Discharge Care Plan Goals: Cool compresses to the area for swelling should help, increase diet and activity as tolerated and remove sutures in 5 days, next Tuesday. Return sooner if concerns of infection or not healing satisfactorily. - My Orders Last 24 Hours: My Active Orders 12/13/18 14:08 Vaccines to be Administered [RC] PER UNIT ROUTINE - Assessment/Plan Last 24 Hours: My Active Orders 12/13/18 14:08 Vaccines to be Administered [RC] PER UNIT ROUTINE
== END 2018-12-13 14:44 | disposition home or self-care (01) ==
LOC: JP.ED 13:37
DX: S01.511A Laceration without foreign body of lip, initial encounter (principal); I25.10 Atherosclerotic heart disease of native coronary artery without angina pectoris; I10 Essential (primary) hypertension; I25.2 Old myocardial infarction; Z23 Encounter for immunization; Z98.890 Other specified postprocedural states; Z90.49 Acquired absence of other specified parts of digestive tract; Z79.82 Long term (current) use of aspirin; Z79.899 Other long term (current) drug therapy
CPT/HCPCS: 12011; 90471; 90715; 99282; 99283-25

== ENCOUNTER 2020-03-08 18:10 | Emergency (ER) | payer MEDICARE, OTHER ==
[2020-03-08 18:29] VITALS: BP 164/78; PULSE 63
--- NOTE | 2020-03-08 18:47 | EDM.PDOC ---
ED HPI GENERAL MEDICAL PROBLEM - General Chief Complaint: Chest Pain Stated Complaint: CHEST PAIN Time Seen by Provider: 03/08/20 18:35 Source of Information: Reports: Patient, Old Records, RN Notes Reviewed History Limitations: Reports: No Limitations - History of Present Illness INITIAL COMMENTS - FREE TEXT/NARRATIVE: 69-year-old gentleman presents emergency department a complaint of chest pain he describes the chest pain as underneath the left nipple it is sharp stabbing lasts less than a minute initial onset approximately 6 hours prior he did have an event last week where he had some coughing. Does have a known history of coronary artery disease as well as thoracic aneurysm repair. Denies any shortness of breath nausea vomiting or diaphoresis he is asymptomatic at this time however if he bends over to tie shoes he will get sharp stabbing pain underneath the left breast, did take asprin today Chest Pain Score (Numeric/FACES): 10 - Related Data Allergies Allergy/AdvReac Type Severity Reaction Status Date / Time No Known Allergies Allergy Verified 03/08/20 18:24 Home Meds: Home Meds Levothyroxine 150 mcg PO ACBREAKFAST 06/24/17 [History] Multivitamin [Multivitamins] 1 tab PO DAILY 06/24/17 [History] atorvaSTATin Calcium [Atorvastatin Calcium] 40 mg PO BEDTIME 07/03/17 [History] carvediloL [Carvedilol] 3.125 mg PO BID 07/03/17 [History] Aspirin/Calcium Carbonate/Mag [Aspirin Buffered] 325 mg PO DAILY 01/06/18 [ History] Past Medical History HEENT History: Reports: Impaired Vision Cardiovascular History: Reports: Aneurysm, CAD, High Cholesterol, Hypertension, [place], Other (See Below) (Thoracic aneurysm repair) Genitourinary History: Reports: Prostate Disorder Psychiatric History: Reports: None Endocrine/Metabolic History: Reports: Hypothyroidism Oncologic (Cancer) History: Reports: Prostate, Thyroid - Past Surgical History HEENT Surgical History: Reports: Tonsillectomy Cardiovascular Surgical History: Reports: AAA Repair, Other (See Below) Other Cardiovascular Surgeries/Procedures: stress test in 2011 GI Surgical History: Reports: Appendectomy Male Surgical History: Reports: Prostatectomy Endocrine Surgical History: Reports: Thyroidectomy Social & Family History - Tobacco Use Smoking Status *Q: Never Smoker - Caffeine Use Caffeine Use: Reports: Coffee - Recreational Drug Use Recreational Drug Use: No ED ROS GENERAL - Review of Systems Review Of Systems: See Below Constitutional: Reports: No Symptoms HEENT: Reports: No Symptoms Respiratory: Reports: No Symptoms Cardiovascular: Reports: Chest Pain GI/Abdominal: Reports: No Symptoms ED EXAM, GENERAL - Physical Exam Exam: See Below Exam Limited By: No Limitations General Appearance: Alert, WD/WN, No Apparent Distress Respiratory/Chest: No Respiratory Distress, Lungs Clear, Normal Breath Sounds, No Accessory Muscle Use, Chest Non-Tender Cardiovascular: Regular Rate, Rhythm, No Murmur GI/Abdominal: Soft, Non-Tender Extremities: No Pedal Edema Course - Vital Signs Last Recorded V/S: Last Vital Signs Temp 97.2 F 03/08/20 18:32 Pulse 63 03/08/20 18:32 Resp 14 03/08/20 18:32 BP 164/78 H 03/08/20 18:32 Pulse Ox 95 03/08/20 18:32 - Orders/Labs/Meds Orders: Active Orders 24 hr Category Date Time Status Cardiac Monitoring [RC] .As Directed Care 03/08/20 18:41 Active EKG Documentation Completion [RC] ASDIRECTED Care 03/08/20 18:43 Active Chest 1V Frontal [CR] Stat Exams 03/08/20 18:43 Taken EKG 12 Lead [EK] Stat Ther 03/08/20 18:43 Ordered Labs: Laboratory Tests 03/08/20 03/08/20 03/08/20 Range/Units 18:56 18:56 19:46 WBC 9.8 (4.5-11.0) K/uL RBC 4.32 (4.30-5.90) M/uL Hgb 12.6 (12.0-15.0) g/dL Hct 38.3 L (40.0-54.0) % MCV 89 (80-98) fL MCH 29 (27-31) pg MCHC 33 (32-36) % Plt Count 317 (150-400) K/uL Neut % (Auto) 56 (36-66) % Lymph % (Auto) 33 (24-44) % [place] % (Auto) 9 H (2-6) % Eos % (Auto) 3 (2-4) % Baso % (Auto) 0 (0-1) % D-Dimer, Quantitative 232 (0.0-400.0) ng/mL Sodium 140 (140-148) mmol/L Potassium 3.8 (3.6-5.2) mmol/L Chloride 105 (100-108) mmol/L Carbon Dioxide 29 (21-32) mmol/L Anion Gap 6.3 (5.0-14.0) mmol/L BUN 22 H (7-18) mg/dL Creatinine 1.1 (0.8-1.3) mg/dL Est Cr Clr Drug Dosing 63.60 mL/min Estimated GFR (MDRD) > 60 (>60) Glucose 163 H (74-106) mg/dL Calcium 8.2 L (8.5-10.1) mg/dL Total Bilirubin 0.5 (0.2-1.0) mg/dL AST 15 (15-37) U/L ALT 24 (12-78) U/L Alkaline Phosphatase 72 (46-116) U/L Troponin I 0.020 (0.000-0.056) ng/mL NT-Pro-B Natriuret Pep 470 H (5-125) pg/mL Total Protein 6.2 L (6.4-8.2) g/dL Albumin 3.2 L (3.4-5.0) g/dL Globulin 3.0 (2.3-3.5) g/dL Albumin/Globulin Ratio 1.1 L (1.2-2.2) Meds: Medications Discontinued Medications Generic Name Dose Route Start Last Admin Trade Name Freq PRN Reason Stop Dose Admin Ketorolac Tromethamine 30 mg 03/08/20 19:48 03/08/20 19:55 Toradol IM 03/08/20 19:49 30 mg ONETIME ONE Administration Departure - Departure Time of Disposition: 20:22 Disposition: Home, Self-Care 01 Condition: Fair Clinical Impression: Atypical chest pain Instructions: Nonspecific Chest Pain, Adult, [id number] Referrals: Vaishali Lebron MD [Primary Care Provider] - Forms: ED Department Discharge Additional Instructions: Try Tylenol or Motrin as needed for chest wall pain, please followup with your primary care provider in 3-5 days if not better, please call return to the emergency department with worsening of symptoms. Sepsis Event Note - Evaluation Sepsis Screening Result: No Definite Risk - Focused Exam Vital Signs: Vital Signs Temp Pulse Resp BP Pulse Ox 03/08/20 18:32 97.2 F 63 14 164/78 H 95 04/18/20 18:28 97.2 F 63 14 164/78 H 95 Date Exam was Performed: 03/08/20 Time Exam was Performed: 20:21 - My Orders Last 24 Hours: My Active Orders 03/08/20 18:41 Cardiac Monitoring [RC] .As Directed 03/08/20 18:43 EKG Documentation Completion [RC] ASDIRECTED Chest 1V Frontal [CR] Stat EKG 12 Lead [EK] Stat - Assessment/Plan Last 24 Hours: My Active Orders 03/08/20 18:41 Cardiac Monitoring [RC] .As Directed 03/08/20 18:43 EKG Documentation Completion [RC] ASDIRECTED Chest 1V Frontal [CR] Stat EKG 12 Lead [EK] Stat Plan: Assessment Acuity = acute Site and laterality = atypical chest pain Etiology = suspicious for muscle skeletal injury from coughing Manifestations = none Location of injury = Home Lab values = CBC, CMP unremarkable troponin within normal limits BNP also unremarkable EKG demonstrates a sinus rhythm no ST elevations or depression chest x-ray I did review films myself I cannot appreciate any acute process, the official read from radiology is pending Plan He had some relief from the Toradol injection provided plan is to use anti- inflammatories follow-up primary care 3 to 5 days if not better or return to ED with worsening This note was dictated using [employer] voice recognition software please call with any questions on syntax or grammar.
[2020-03-08] MEDS ORDERED: Ketorolac 30 MG/ML SDV IM ONE (19:48)
--- NOTE | 2020-03-10 10:19 | CR ---
CHEST: Portable 03/08/2020 at 1923 CLINICAL HISTORY:Chest pain COMPARISON:CT December 2017 FINDINGS: Patient has had previous sternotomy. There are atherosclerotic changes in the aorta.. The heart size, pulmonary vascularity and hilar structures are normal. No infiltrate effusion or pneumothorax is seen. IMPRESSION: No acute cardiopulmonary process
== END 2020-03-08 20:33 | disposition home or self-care (01) ==
LOC: JP.ED 18:10
DX: R07.89 Other chest pain (principal); E78.00 Pure hypercholesterolemia, unspecified; I10 Essential (primary) hypertension; I25.2 Old myocardial infarction; E03.9 Hypothyroidism, unspecified; I25.10 Atherosclerotic heart disease of native coronary artery without angina pectoris; Z79.899 Other long term (current) drug therapy
CPT/HCPCS: 36415; 71045; 80053; 83880; 84484; 85025; 85379; 93005; 93010; 96372; 99284; 99285; J1885

== ENCOUNTER 2024-12-23 15:28 | Emergency (ER) | payer MEDICARE, OTHER ==
[2024-12-23 16:32] VITALS: PULSE 62
[2024-12-23 17:11] VITALS: BP 136/80
== END 2024-12-23 17:11 | disposition home or self-care (01) ==
LOC: JP.ED 15:28
DX: J10.1 Influenza due to other identified influenza virus with other respiratory manifestations (principal); I25.10 Atherosclerotic heart disease of native coronary artery without angina pectoris; I25.2 Old myocardial infarction; I10 Essential (primary) hypertension; E78.00 Pure hypercholesterolemia, unspecified; E03.9 Hypothyroidism, unspecified; Z90.49 Acquired absence of other specified parts of digestive tract; Z79.82 Long term (current) use of aspirin; Z79.890 Hormone replacement therapy; Z79.899 Other long term (current) drug therapy
CPT/HCPCS: 99283